=== PATIENT | male | born 1955 | race Caucasian/White ===

== ENCOUNTER 2017-01-28 13:57 | Day surgery (SDC) | payer OTHER, MEDICARE ==
[2017-01-28] MEDS ORDERED: IV START KIT ONE (14:06)
[2017-01-28] MEDS ORDERED: LACTATED RINGERS 1,000 ML ONE (14:06)
[2017-01-28] MEDS ORDERED: FENTANYL 250 MCG/5 ML AMP ONE (15:02)
[2017-01-28] MEDS ORDERED: PROPOFOL 20 ML IV ONE ×3 (15:02→16:10)
[2017-01-28] MEDS ORDERED: LACTATED RINGERS 1,000 ML IV SCH (16:00)
--- NOTE | 2017-02-02 09:42 | SURGPATH ---
[facility] [address] [place] [id number] Patient Name: DEVIN MEANS MR#: [id number] : 1955 Gender: M Specimen #: [id number] Collected: 01/28/2017 Received: 02/01/2017 Reported: 02/02/2017 Submitting Phys: PALMER ATWOOD Copy To Phys: ALPA MORELOS [facility] Clinical History / Pre-Operative Diagnosis: History of colon polyps Specimen Source / Surgical Procedure Performed: #1 transverse colon polyp, #2 mid transverse colon polyp, #3 splenic flexure polyp Interpretation: 1. COLON, TRANSVERSE, BIOPSY: - TUBULAR ADENOMA. - NO EVIDENCE OF MALIGNANCY. 2. COLON, MID TRANSVERSE, BIOPSY: - THREE FRAGMENTS OF TUBULAR ADENOMAS. - NO EVIDENCE OF MALIGNANCY. 3. COLON, SPLENIC FLEXURE, BIOPSY: - TUBULAR ADENOMA. - NO EVIDENCE OF MALIGNANCY. Electronically Signed Out Stanford Bennett M.D., Ph.D. Gross Description: The specimen is received in three formalin filled containers, labeled with the patient's name. 1. The specimen is labeled "transverse colon polyp" and consists of three irregularly shaped fragment(s) of raymond tissue aggregating to 1.0 x 0.3 x 0.2 cm. The specimen is entirely submitted in cassette 1A. 2. The specimen is labeled "mid transverse colon polyp" and consists of four irregularly shaped fragment(s) of raymond tissue aggregating to 2.0 x 1.0 x 0.2 cm. The specimen is entirely submitted in cassette 2A. 3. The specimen is labeled "splenic flexure polyp" and consists of one irregularly shaped fragment(s) of raymond tissue aggregating to 0.8 x 0.4 x 0.1 cm. The specimen is entirely submitted in cassette 3A. SALLIE Ramey Microscopic Description: 1. Examination of multiple levels from the transverse colon biopsy shows three fragments of colonic mucosa. One of the pieces shows adenomatous changes within glands and tubules. There is no evidence of malignancy. 2. Examination of multiple levels from the mid transverse colon biopsy shows multiple fragments of colonic mucosa. Three pieces show adenomatous changes within glands and tubules. There is no evidence of malignancy. 3. Examination of multiple levels from the colon biopsy at the splenic flexure shows a single fragment of colonic mucosa with adenomatous changes within glands and tubules. There is no evidence of malignancy. 1: [id number] 2: [id number] 3: 25175 D12.3
== END 2017-01-28 16:29 | disposition home or self-care (01) ==
LOC: SDC 13:57
PROVIDERS: ATTEND Surgery
PROC: 0DBL8ZX Excision of Transverse Colon, Via Natural or Artificial Opening Endoscopic, Diagnostic (ICD-10-PCS; principal; 2017-01-28)
PROC: 0DBL8ZX Excision of Transverse Colon, Via Natural or Artificial Opening Endoscopic, Diagnostic (ICD-10-PCS; 2017-01-28)
PROC: 0DBL8ZX Excision of Transverse Colon, Via Natural or Artificial Opening Endoscopic, Diagnostic (ICD-10-PCS; 2017-01-28)
DX: Z12.11 Encounter for screening for malignant neoplasm of colon (principal); D12.3 Benign neoplasm of transverse colon; Z86.010 Personal history of colon polyps; D64.9 Anemia, unspecified; I48.91 Unspecified atrial fibrillation; I50.9 Heart failure, unspecified; I10 Essential (primary) hypertension; Z79.01 Long term (current) use of anticoagulants; Z95.0 Presence of cardiac pacemaker; E78.00 Pure hypercholesterolemia, unspecified; Z85.828 Personal history of other malignant neoplasm of skin; Z88.8 Allergy status to other drugs, medicaments and biological substances
CPT/HCPCS: 45385; 45380; J3010; J7120